=== PATIENT | male | born 1940 | race Caucasian/White ===

== ENCOUNTER → 2020-10-05 | Outpatient (CLI) | payer MEDICARE ==
[2020-10-05] VITALS (14 sets, daily range): BP systolic 123–185; BP diastolic 71–109
[~2020-10-05] MED LIST: ACTOS 30 MG TAB30 MG PO; AMBIEN CR 6.26.25 MG PO; ASPIRIN EC81 M1 PO; BACTROBAN NASAL1 GM NS; BENICAR40 MG PO; GLUCOPHAGE1000 MG PO; LASIX 40 MG TAB40 M1 PO; LORTAB 5-500 T1 EAC1 PO; MULTIVITAMINS PO; NABUMETONE 750750 M1 PO; PACERONE 200 M200 MG PO; PERCOCET 5-3251 EACH PO; PHISOHEX148 ML; POTASSIUM20 PO; RED YEAST RICE600 MG PO; SKELAXIN 800 M800 M1 PO; SULAR PO; TOPROL XL50 MG PO
--- NOTE | 2020-10-05 13:52 | TEE ---
[place] [address] TRANSESOPHAGEAL ECHOCARDIOGRAM Name: ROBBIE BLACKMON Room: [facility]#: [id number] Admission: 10/05/20 Attend Phys: Houston Spencer, Discharge: Date of : 38 Date of Service: 10/05/20 1351 Report #: [id number] THIS REPORT FOR: cc: Denzel Barillas MD, James A. MD Liston, Michael J. MD [facility] ~ APPROVED REPORT Study performed: 10/05/2020 11:05:45 EXAM: Transesophageal Echocardiogram Patient Location: Out-Patient Status: routine BSA: 2.23 HR: 75 bpm BP: 138/77 mmHg Rhythm: Atrial Fibrillation Other Information Study Quality: Adequate Indications Atrial Fibrillation evaluate for blood clot Echo Enhancing Agent Indication: Rule out Shunt Agent(s) / Amount(s) Used: Agitated Saline 10 cc Procedure After obtaining informed consent, patient underwent transesophageal echo in the [facility]. Type of Sedation : Conscious Sedation Sedation was administered by Sivan Hernandez RN. Sedation start time: 1105 Case end Time: 1120 Sedation was achieved intravenously with: Versed (6) Fentanyl (100) Transesophageal probe was inserted and advanced into esophagus without difficulty by Houston Spencer MD, [facility]. Echo enhancement indication: R/O Septal defect. Echo enhancement agent administered: Agitated Saline The NATALIE was performed without complications. Throughout the procedure, the blood pressure, pulse oximetry, cardiac rhythm, [place] [address] TRANSESOPHAGEAL ECHOCARDIOGRAM Name: ROBBIE BLACKMON Room: [facility]#: [id number] Admission: 10/05/20 Attend Phys: Houston Spencer, Discharge: Date of : 38 Date of Service: 10/05/20 1351 Report #: [id number] The patient tolerated the procedure without adverse effects. Recovery from conscious sedation was uneventful and vital signs were stable. Left Ventricle The left ventricle is normal size. There is normal LV segmental wall motion. Mild concentric left ventricular hypertrophy. The left ventricular systolic function is normal. LVEF is 60-65%. Right Ventricle The right ventricle is normal size. The right ventricular systolic function is normal. Atria The left atrium size is normal. No appendage seen PFO is noted. The right atrium size is normal. Aortic Valve Mild aortic valve sclerosis. No aortic regurgitation is present. Mitral Valve The mitral valve is normal in structure. Trace mitral regurgitation. Tricuspid Valve Tricuspid valve is not well visualized. Pulmonic Valve Pulmonic valve is not well visualized. Great Vessels The aortic root is normal in size. The ascending aorta is normal in size. <Conclusion> The left ventricle is normal size. Mild concentric left ventricular hypertrophy. The left ventricular systolic function is normal. LVEF is 60-65%. Mild aortic valve sclerosis. No aortic regurgitation is present. [place] [address] TRANSESOPHAGEAL ECHOCARDIOGRAM Name: ROBBIE BLACKMON [id number] Admission: 10/05/20 Attend Phys: Houston Spencer, Discharge: Date of : 38 Date of Service: 10/05/20 [facility] Report #: [id number] Postoperative absence of left atrial appendage verified. <ELECTRONICALLY SIGNED> By: Houston Spencer MD, FACC 10/05/20 50 Houston Spencer MD, FACC /INF
== END | disposition home or self-care (01) ==
LOC: M.CL 10:08
PROVIDERS: ATTEND Internal Medicine Cardiovascular Disease
DX: I48.91 Unspecified atrial fibrillation (principal); I34.0 Nonrheumatic mitral (valve) insufficiency; I35.8 Other nonrheumatic aortic valve disorders; Z79.01 Long term (current) use of anticoagulants; Z98.890 Other specified postprocedural states; Z79.899 Other long term (current) drug therapy